=== PATIENT | male | born 1980 | race Caucasian/White ===

== ENCOUNTER 2021-03-10 01:39 | Emergency (ER) | payer BC ==
[~2021-03-10] VITALS: Ht 193 cm; Wt 82.3 kg
[~2021-03-10 01:39] MED LIST: OMEG1CAP38 PO
--- NOTE | 2021-03-10 01:51 | PHYS DOC ---
Past History Past Medical History: Sciatica General Adult EDM: Chief Complaint: LOWER BACK PAIN OR INJURY HPI: HPI: "I was moving a washer with two other guys..and twisted my back..today... it not gotten better.. all night it has been bothering me.. here in the lower.. it seems to radiate to my Rt. hip area..." Patient is a 41 year old male who presents with above hx and complaints of back injury moving a washer earlier today. Patient localizes pain in the lumbar region. Does seem to track along the right sciatic nerve. No history of problems with defecation or urination. Patient denies any fever or chills. Patient denies any history of cancer. Patient denies IV drug use. Patient has been every back injury. Patient has been taking Tylenol or Profen at home with no improvement. No recent travel. No specific ill contacts. Normally healthy. DTRs +2 Tylenol. There is slight straight leg lift on right which increases lumbosacral pain. Patient normally follows with Dr. Manley. Review of Systems: Review of Systems: Constitutional: Denies fever or chills Eyes: Denies change in visual acuity HENT: Denies nasal congestion or sore throat Respiratory: Denies cough or shortness of breath Cardiovascular: Denies chest pain or edema GI: Denies abdominal pain, nausea, vomiting, bloody stools or diarrhea : Denies dysuria Musculoskeletal: Complains of severe lumbosacral pain and sciatica on right Integument: Denies rash Neurologic: Denies headache, focal weakness or sensory changes Endocrine: Denies polyuria or polydipsia Lymphatic: Denies swollen glands Psychiatric: Denies depression or anxiety Family History: Family History: Noncontributory to presentation Current Medications: Current Meds: See nursing for home meds Allergies: Allergies: Allergies Coded Allergies Type Severity Reaction Last Updated Verified No Known Drug Allergies 03/29/16 No Physical Exam: PE: Constitutional: Well developed, well nourished, no acute distress, non-toxic appearance. [] HENT: Normocephalic, atraumatic, bilateral external ears normal, oropharynx moist, no oral exudates, nose normal. [] Eyes: PERRLA, EOMI, conjunctiva normal, no discharge. [] Neck: Normal range of motion, no tenderness, supple, no stridor. [] Cardiovascular:Heart rate regular rhythm, no murmur [] Lungs & Thorax: Bilateral breath sounds equal apex on auscultation [] Abdomen: Bowel sounds normal, soft, no tenderness, no masses, no pulsatile masses. [] Skin: Warm, dry, no erythema, no rash. [] Back: Lumbosacral tenderness, some radiation into the right sciatic nerve,, no CVA tenderness. [] Extremities: No tenderness, no cyanosis, no clubbing, ROM intact, no edema. [] Neurologic: Alert and oriented X 3, normal motor function, normal sensory function, no focal deficits noted. [] DTRs are +2 patella. No sensory loss appreciated. Psychologic: Affect anxious, judgement normal, mood normal. [] EKG: EKG: [] Radiology/Procedures: Radiology/Procedures: [][address] [address] IMAGING REPORT Signed PATIENT: PRAVEENA TONG ACCOUNT: [id number] : 1980 LOCATION: ER AGE: 41 SEX: M EXAM STATUS: REG ER ORD. PHYSICIAN: LUCAS MONTILLA MD REASON: back injury PROCEDURE: CT LUMBAR SPINE WO CONTRAST Examination: CT lumbar spine without contrast History: Back injury Comparison: None TECHNIQUE: Axial helical images of the lumbar spine were obtained without contrast. Coronal and sagittal reconstruction was performed. Exposure: One or more of the following individualized dose reduction techniques were utilized for this examination: 1. Automated exposure control 2. Adjustment of the mA and/or kV according to patient size 3. Use of iterative reconstruction technique Findings: The vertebral bodies are aligned. There is no loss of vertebral body stature. M inimal disc bulge identified at L3-L4, L4-L5, L5-S1 vertebral levels. Impression: 1. No acute osseous findings. 2. Minimal disc bulge identified at L3-L4, L4-L5, L5-S1 vertebral levels. Electronically signed by: Ruiz Gee MD (03/10/2021 3:31 AM) [id number] DICTATED AND SIGNED BY: RUIZ GEE MD DATE: 03/10/21 0327 CC: LUCAS MONTILLA MD; JOSH MANLEY MD ~MTH0 0 Heart Score: C/O Chest Pain: N/A Risk Factors: Risk Factors: DM, Current or recent (<one month) smoker, HTN, HLP, family history of CAD, obesity. Risk Scores: Score 0 - 3: 2.5% MACE over next 6 weeks - Discharge Home Score 4 - 6: 20.3% MACE over next 6 weeks - Admit for Clinical Observation Score 7 - 10: 72.7% MACE over next 6 weeks - Early Invasive Strategies Course & Med Decision Making: Course & Med Decision Making Pertinent Labs and Imaging studies reviewed. (See chart for details) Patient is is vaccinated. Patient use Tylenol and ibuprofen for pain. May use Flexeril 10 mg 3 times a day for muscle spasm. Patient may use Vicoprofen 1 tablet up to 4 times a day for marked discomfort. Flexeril 10 mg up tid for spasms. Follow-up primary care. Consider physical therapy. Impression: 1. Sciatica [] Dragon Disclaimer: [place] Disclaimer: This electronic medical record was generated, in whole or in part, using a voice recognition dictation system. Departure Departure: Referrals: JOSH MANLEY MD (PCP) Scripts Cyclobenzaprine Hcl (CYCLOBENZAPRINE HCL) 10 Mg Tablet 10 MG PO TID PRN PRN for spasms, #30 TAB Prov: LUCAS MONTILLA MD 03/10/21 Hydrocodone/Ibuprofen (HYDROCODONE-IBUPROFEN 7.5-200 ) 1 Each Tablet 1 TAB PO PRN Q6HRS PRN for PAIN, #30 TAB 0 Refills Prov: LUCAS MONTILLA MD 03/10/21 Dragon Disclaimer This chart was dictated in whole or in part using Voice Recognition software in a busy, high-work load, and often noisy Emergency Department environment. It may contain unintended and wholly unrecognized errors or omissions. LUCAS MONTILLA MD Mar 10, 2021 01:51
[2021-03-10] MEDS ORDERED: KETOROLAC 60 MG/2 ML VIAL. IM ONE (02:00)
[2021-03-10] MEDS ORDERED: methylPREDNISolone ACETATE 40 MG/ML VIAL. IM ONE (02:45)
[2021-03-10] MEDS ORDERED: ORPHENADRINE CITRATE 60 MG/2 ML VIAL. IM ONE (02:45)
[2021-03-10] MEDS ORDERED: MORPHINE SULFATE 10 MG/ML SYRINGE. SQ ONE ×2 (02:45→04:15)
--- NOTE | 2021-03-10 03:34 | RAD ---
Examination: CT lumbar spine without contrast History: Back injury Comparison: None TECHNIQUE: Axial helical images of the lumbar spine were obtained without contrast. Coronal and sagit neil reconstruction was performed. Exposure: One or more of the following individualized dose reduction techniques were utilized for thi s examination: 1. Automated exposure control 2. Adjustment of the mA and/or kV according to patient size 3. Use of iterative reconstruction technique Findings: The vertebral bodies are aligned. There is no loss of vertebral body stature. Minimal disc bulge iden tified at L3-L4, L4-L5, L5-S1 vertebral levels. Impression: 1. No acute osseous findings. 2. Minimal disc bulge identified at L3-L4, L4-L5, L5-S1 vertebral levels. Electronically signed by: Ruiz Gee MD (03/10/2021 3:31 AM) [id number]
[2021-03-10] MEDS ORDERED: HYDR-1179 PO (03:40)
[2021-03-10] MEDS ORDERED: CYCL-331 PO (03:40)
[2021-03-10 04:11] VITALS: BP 108/68
== END 2021-03-10 04:10 | disposition home or self-care (01) ==
LOC: ER 01:39
DX: M54.41 Lumbago with sciatica, right side (principal)
CPT/HCPCS: 72131; 96372; 99284; J1030; J1885; J2060; J2270; J2360; 99285-25